=== PATIENT | female | born 1970 | race Caucasian/White ===

== ENCOUNTER 2018-06-17 12:50 | Emergency (ER) | payer BC ==
[~2018-06-17] VITALS: Ht 157.5 cm; Wt 101.6 kg
[~2018-06-17 12:50] MED LIST: ASPIR LOW81 MG PO; COLACE100 MG PO; DULCOLAX5 MG PO; FERG PO; FERROUS SULFAT325 M2 PO; OMEPRAZOLE DR20 M1 PO; VITAMIN C500 M4 PO; XARELTO15 M1 GT; XARELTO20 M1 PO
[2018-06-17 13:08] VITALS: Ht 157.5 cm; Wt 101.6 kg
[2018-06-17 15:35] VITALS: BP 138/88
== END 2018-06-17 15:36 | disposition home or self-care (01) ==
LOC: ED 12:50
DX: N39.0 Urinary tract infection, site not specified (principal); R00.2 Palpitations; F41.9 Anxiety disorder, unspecified; Z86.2 Personal history of diseases of the blood and blood-forming organs and certain disorders involving the immune mechanism

== ENCOUNTER 2019-11-18 12:16 | Emergency (ER) | payer BC ==
[~2019-11-18] VITALS: Ht 157.5 cm; Wt 104.8 kg
[2019-11-18 12:21] VITALS: Ht 157.5 cm; Wt 104.8 kg
[2019-11-18 14:11] VITALS: BP 120/66
== END 2019-11-18 14:11 | disposition home or self-care (01) ==
LOC: ED 12:16
DX: M54.16 Radiculopathy, lumbar region (principal); M43.16 Spondylolisthesis, lumbar region; E66.9 Obesity, unspecified; Z68.41 Body mass index [BMI] 40.0-44.9, adult; Z86.2 Personal history of diseases of the blood and blood-forming organs and certain disorders involving the immune mechanism; Z79.01 Long term (current) use of anticoagulants
CPT/HCPCS: Q0092